=== PATIENT | female | born 1995 | race Caucasian/White ===

== ENCOUNTER 2020-09-21 15:32 | Emergency (ER) | payer MEDICAID ==
[~2020-09-21] VITALS: Ht 165.1 cm; Wt 68.0 kg
[2020-09-21] MEDS ORDERED: METOCLOPRAMIDE HCL 10 MG/2 ML VIAL IV ONE (16:30)
[2020-09-21] MEDS ORDERED: IV NS 0.9% 500 ML BAG IV ONE (16:30)
[2020-09-21] MEDS ORDERED: METOCLOPRAMIDE HCL 10 MG/2 ML VIAL ONE (16:59)
--- NOTE | 2020-09-21 17:28 | NUR ---
Patient discharged to home in stable condition. Written and verbal after care instructions given. Patient verbalizes understanding of instruction.
[2020-09-21 17:29] VITALS: BP 100/64
== END 2020-09-21 17:30 | disposition home or self-care (01) ==
LOC: ER 15:36
DX: O26.892 Other specified pregnancy related conditions, second trimester (principal); R10.9 Unspecified abdominal pain; R19.7 Diarrhea, unspecified; Z3A.15 15 weeks gestation of pregnancy
CPT/HCPCS: 76856; 96374; 99284; J2765; J7040